=== PATIENT | male | born 1985 | race Two or more races ===

== ENCOUNTER 2022-05-17 12:10 | Emergency (ER) | payer MEDICAID ==
[~2022-05-17] VITALS: Ht 175.3 cm; Wt 85.3 kg
[2022-05-17 12:34] VITALS: BP 126/61
--- NOTE | 2022-05-17 12:34 | NUR ---
SORETHROAT X 1 MONTH. PT IS AFEBRILE, VITALS WITHIN NORMAL LIMITS
[2022-05-17] MEDS ORDERED: LIDOCAINE VISCOUS 2% UD 15 ML UDC MM ONE (15:00)
[2022-05-17 16:44] LABS: MONOTEST NEGATIVE (NEGATIVE)
[2022-05-17] MEDS ORDERED: LIDOCAINE VISCOUS 2% UD 15 ML UDC ONE (16:45)
--- NOTE | 2022-05-17 17:11 | NUR ---
RAPID GROUP A STREP SENT TO LAB ORDERED
[2022-05-17] MEDS ORDERED: PRED50TA PO (18:37)
[2022-05-17] MEDS ORDERED: BENZ1LOZ58 PO (18:37)
== END 2022-05-17 18:47 | disposition home or self-care (01) ==
LOC: ER 12:29
DX: J02.9 Acute pharyngitis, unspecified (principal); Z60.2 Problems related to living alone
CPT/HCPCS: 36415; 86308-TC; 86403-TC; 86664

== ENCOUNTER 2022-07-28 22:57 | Emergency (ER) | payer MEDICAID ==
[~2022-07-28] VITALS: Ht 175.3 cm; Wt 92.2 kg
[~2022-07-28 22:57] MED LIST: BENZ1LOZ58 PO; PRED50TA PO
--- NOTE | 2022-07-29 01:24 | NUR ---
CAME WITH CC OF COUGH WITH PHLEGM, NASAL CONGESTIONS AND SORE THROAT X7DAYS, -FEVER
--- NOTE | 2022-07-29 01:51 | NUR ---
CLAIMS CORRESPONDENCE CLERK AT PT'S BEDSIDE
--- NOTE | 2022-07-29 01:52 | NUR ---
COVID, STREP, INFLUENZA SWABS DONE AND SENT TO LAB
[2022-07-29 03:40] LABS: MONOTEST NEGATIVE (NEGATIVE)
[2022-07-29] MEDS ORDERED: METH4TAB3 PO (04:17)
--- NOTE | 2022-07-29 04:53 | NUR ---
Patient discharged to home in stable condition. Written and verbal after care instructions given. Patient verbalizes understanding of instruction.Pt ambulatory with a steady gait
--- NOTE | 2022-07-29 04:54 | NUR ---
Patient discharged to home in stable condition. Written and verbal after care instructions given. Patient verbalizes understanding of instruction.
[2022-07-29 04:55] VITALS: BP 123/84
== END 2022-07-29 04:54 | disposition home or self-care (01) ==
LOC: ER 23:05
DX: J02.9 Acute pharyngitis, unspecified (principal); J34.89 Other specified disorders of nose and nasal sinuses; Z20.822 Contact with and (suspected) exposure to COVID-19
CPT/HCPCS: 99283; 87426; 87804 ×2; 86308; 36415; 87880; C9803; 86403-TC

== ENCOUNTER 2022-08-06 11:12 | Emergency (ER) | payer MEDICAID ==
[~2022-08-06] VITALS: Ht 162.6 cm; Wt 64.4 kg
[~2022-08-06 11:12] MED LIST changes: +METH4TAB3 PO
--- NOTE | 2022-08-06 11:51 | NUR ---
PT IN BED 7 A.O X4, BREATHING IS UNLABORED O2SAT 97% ON ROOM AIR. ENDORSES SOME OBSTRUCTIONS AND THROAT SWELLING HAS HAD THIS PROBLEM IN THE PAST. SEEN BY AD WHO SAYS IT IS ALLERGIES. VITALS WNL CONNECTED TO BEDSIDE MONITOR. BED IS LOCKED IN LOWEST PSOTION.
[2022-08-06] MEDS ORDERED: DEXAMETHASONE SOD PHOSPHATE 10 MG/ML VIAL ONE (12:00)
[2022-08-06] MEDS ORDERED: DEXAMETHASONE SOD PHOSPHATE 10 MG/ML VIAL IM ONE (12:00)
--- NOTE | 2022-08-06 12:32 | NUR ---
PT STATED THAT HIS THROAT FEELS MORE OPEN AND ITS FEELING BETTER. VITAL STABLE O2SAT 98%. NO STRIDOR NOTED ON AUSCULTATION. PT EDUCATED TO FOLLOW UP WITH HIS PRIMARY REGARDING RESPIRATORY SYMPTOMS.
[2022-08-06 12:33] VITALS: BP 123/76
== END 2022-08-06 12:34 | disposition home or self-care (01) ==
LOC: ER 11:22
DX: J02.9 Acute pharyngitis, unspecified (principal); Z79.899 Other long term (current) drug therapy
CPT/HCPCS: 99283; 96372; J1100